=== PATIENT | female | born 1960 | race Caucasian/White ===

== ENCOUNTER → 2018-02-21 | Outpatient (CLI) | payer MEDICARE ==
--- NOTE | 2018-02-24 09:33 | RAD ---
DATE: 02/21/2018 EXAM: MAMMO ANABELA SCREENING BILATERAL HISTORY: Routine screening COMPARISON: 06/11/2014 This study was interpreted with the benefit of Computerized Aided Detection (CAD). Breast Density: SCATTERED The breast parenchyma shows scattered fibroglandular densities. Breast parenchyma level B. FINDINGS: 2-D and 3-D tomosynthesis imaging was performed in CC and MLO projections. No new or enlarging breast densities are seen. No spiculated mass or architectural distortion is evident. No suspicious microcalcifications are seen. IMPRESSION: There is no mammographic evidence of malignancy in either breast. BI-RADS CATEGORY: 2 BENIGN FINDING(S) RECOMMENDED FOLLOW-UP: 12M 12 MONTH FOLLOW-UP PQRS compliance statement: Patient information was entered into a reminder system with a target due date for the next mammogram. Mammography is a sensitive method for finding small breast cancers, but it does not detect them all and is not a substitute for careful clinical examination. A negative mammogram does not negate a clinically suspicious finding and should not result in delay in biopsying a clinically suspicious abnormality. "Our facility is accredited by the [employer] Mammography Program."
== END | disposition home or self-care (01) ==
LOC: MAMMO 08:23
PROVIDERS: ATTEND Family Medicine
DX: Z12.31 Encounter for screening mammogram for malignant neoplasm of breast (principal)
CPT/HCPCS: 77063; 77067

== ENCOUNTER → 2020-04-22 | Outpatient (CLI) | payer MEDICARE, OTHER ==
--- NOTE | 2020-04-22 15:00 | RAD ---
DATE: 04/22/2020 8:09 AM EXAM: MAMMO ANABELA SCREENING BILATERAL HISTORY: Screening COMPARISON: 02/21/2018 Bilateral CC and MLO views of the breasts were performed. Bilateral breast tomosynthesis was performed in CC and MLO projections. This study was interpreted with the benefit of Computerized Aided Detection (CAD). FINDINGS: Breast Density: FATTY The Breast Parenchyma is primarily fatty replaced. Breast parenchyma level density A. No suspicious masses, microcalcifications or architectural distortion is present to suggest malignancy in either breast. The visualized axillae are unremarkable. IMPRESSION: No mammographic evidence of malignancy. BI-RADS CATEGORY: 1 NEGATIVE RECOMMENDED FOLLOW-UP: 12M 12 MONTH FOLLOW-UP Annual screening mammography is recommended, unless clinically indicated sooner based on symptoms or change in physical exam. PQRS compliance statement: Patient information was entered into a reminder system with a target due date for the next mammogram. Mammography is a sensitive method for finding small breast cancers, but it does not detect them all and is not a substitute for careful clinical examination. A negative mammogram does not negate a clinically suspicious finding and should not result in delay in biopsying a clinically suspicious abnormality. "Our facility is accredited by the [employer] Mammography Program."
== END ==
LOC: MAMMO 08:39
PROVIDERS: ATTEND Family Medicine
DX: Z12.31 Encounter for screening mammogram for malignant neoplasm of breast (principal)
CPT/HCPCS: 77063; 77067

== ENCOUNTER → 2020-10-08 | Day surgery (SDC) | payer OTHER ==
[~2020-10-08] VITALS: Ht 149.9 cm; Wt 70.0 kg
[~2020-10-08] MED LIST: ARIP5TAB13 PO; BUPR150T15 PO; BUPR300T3 PO; CETI10TA16 PO; DOXE25CA PO; ESOM20CA PO; FLUT1DIS3 IH; IV RINGERS,LACTATED 1000ML 1,000 ML IV ONE; IV RINGERS,LACTATED 1000ML 1,000 ML IV SCH; LAMO150T3 PO; LIDOCAINE 2% PF 5 ML VIAL. ONE; PROPOFOL 10 MG/ML (20ML) VIAL. IV ONE
[2020-10-08 06:17] VITALS: BP 134/81
[2020-10-08 08:05] VITALS: BP 121/65
--- NOTE | 2020-10-08 08:38 | CONS ---
DATE OF CONSULTATION: 10/08/2020 UPDATED HISTORY AND PHYSICAL REASON FOR CONSULTATION: History of Lucio's and colorectal screening. HISTORY OF PRESENT ILLNESS: A 60-year-old female with past medical history significant for Lucio's, goiter, asthma, is seen for interval exam. Bowel habits have been regular without diarrhea or constipation. Previous colonoscopy in 2010 was incomplete and barium enema was deferred by the patient at that time. She has controlled her Lucio's with omeprazole, Nexium 40 mg daily without difficulties and she is otherwise without additional complaints. PAST MEDICAL HISTORY: Lucio's, depression, GERD, goiter, asthma. ALLERGIES: SULFA. MEDICATIONS: Include Abilify, Wellbutrin, cetirizine, doxepin, Nexium, fluticasone, Lamictal. PAST SURGICAL HISTORY: Status post , cholecystectomy, hysterectomy. FAMILY HISTORY: Significant for Hodgkin's disease with her father and lung cancer with her mother. SOCIAL HISTORY: Former smoker, social drinker. REVIEW OF SYSTEMS: Per old records. PHYSICAL EXAMINATION: GENERAL: Reveals a well-nourished, well-developed female, who is alert, cooperative, no acute distress. VITAL SIGNS: Temperature 97, pulse 84, respiratory rate 20. LUNGS: Reveal decreased breath sounds. CARDIOVASCULAR: Reveals S1, S2, without S3, S4 or appreciable murmur. ABDOMEN: Reveals a soft abdomen with normal bowel sounds. No appreciable hepatosplenomegaly. Multiple surgical incisions. IMPRESSION AND PLAN: 1. Lucio's, surveillance exam is recommended at this time. Risks and benefits of procedure were discussed. The patient is willing to proceed. 2. Colorectal screening is warranted with colonoscopy. I would like to thank for allowing us to consult and participate in this patient's care.. HONG/ALCIDES/EVER DR: Lauren TID: [id number]
--- NOTE | 2020-10-10 13:13 | PATHOLOGY ---
[facility] Accession Number: [id number] . 01 Material submitted: . esophagus - DISTAL ESOPHAGUS BIOPSY. Modifiers: distal . 01 Clinical history: . HISTORY OF CARBONE'S/CRC EGD/COLON CARBONE'S, CRC SCREEN . 02 Diagnosis: Esophageal biopsies, distal esophagus: - Segments of hyperplastic squamous esophageal mucosa. (JPM:pablo; 10/10/2020) S 10/10/2020 1202 Local . 02 Comment: Sections of the distal esophageal biopsy reveal segments of hyperplastic squamous esophageal mucosa. The findings are consistent with reflux esophagitis. There is no evidence of Carbone's change, dysplasia, or malignancy. (JPM:pablo; 10/10/2020) . 02 Electronically signed: . Gerardo Leung MD, Pathologist NPI- [id number] . 01 Gross description: . The specimen is received in formalin, labeled "Kalyani Langei, distal esophagus BX". Received are 4 segments of pale giang tissue ranging in size from 0.3 to 0.6 cm in maximum dimensions. The specimen is submitted entirely in cassette A1.([facility]; 10/09/2020) [facility] 10/09/2020 1302 Local . 02 Microscopic: . . . 02 Pathologist provided ICD-10: Z87.19 . 02 CPT . [id number] Specimen Comment: A courtesy copy of this report has been sent to [phone], [phone] Specimen Comment: [id number] Specimen Comment: Report sent to / DR IRWIN Performed at: [address], [place], [place] [id number] MD Toro Espinoza MD Phone: [phone] Performed at: 02 [facility] [address] [place], [place] [id number] MD Gerardo Leung MD Phone: [phone]
== END | disposition home or self-care (01) ==
LOC: ENDOS 06:08
PROVIDERS: ATTEND Internal Medicine Gastroenterology
DX: Z12.11 Encounter for screening for malignant neoplasm of colon (principal); K64.0 First degree hemorrhoids; K57.30 Diverticulosis of large intestine without perforation or abscess without bleeding; K21.00 Gastro-esophageal reflux disease with esophagitis, without bleeding; K22.70 Barrett's esophagus without dysplasia; K31.89 Other diseases of stomach and duodenum; K63.89 Other specified diseases of intestine; J45.909 Unspecified asthma, uncomplicated; F41.9 Anxiety disorder, unspecified; F32.9 Major depressive disorder, single episode, unspecified; Z87.19 Personal history of other diseases of the digestive system; Z90.710 Acquired absence of both cervix and uterus; Z90.49 Acquired absence of other specified parts of digestive tract; Z98.890 Other specified postprocedural states; Z79.899 Other long term (current) drug therapy; Z87.891 Personal history of nicotine dependence; Z88.2 Allergy status to sulfonamides
CPT/HCPCS: 43239; 88305; G0121; J2704; 45378